=== PATIENT | female | born 1975 | race Caucasian/White ===

== ENCOUNTER → 2024-05-19 | Outpatient (CLI) | payer OTHER, SELFPAY ==
[2024-05-19 17:31] LABS: Pathologist Comment May follow
[2024-05-19 17:33] LABS: Pathologist Comment May follow
[2024-05-19 21:04] LABS: Synovial Fld Mononuclear WBC % 53.5 %; Synovial Fld Polynuclear WBC # 3.434 10^3/uL; Synovial Fld Polynuclear WBC % 46.5 %
[2024-05-19 21:06] LABS: RBC /Synovial Fluid 0.005 10^6/uL (0)
[2024-05-19 21:09] LABS: Synovial Fld Mononuclear WBC # 5.367 10^3/ul; Synovial Fld Mononuclear WBC % 39.9 %; Synovial Fld Polynuclear WBC # 8.103 10^3/uL; Synovial Fld Polynuclear WBC % 60.1 %
[2024-05-19 23:02] LABS: AUTO B FLUID DILUENT BKGD CT WBC <0.1 RBC <0.01 (W<.1,R<.01); Appearance /Synovial Fluid Hazy (CLEAR); CRYSTALS, BODY FLUID NO CRYSTALS SEEN; Color / Synovial Fluid Straw (Pale Yellow); Lymph 5 %; Neutrophil 63 % (0-25); Other Cell /Synovial Fluid 32 %; Source / Synovial Fluid L KNEE; Source- Body Fluid SYNOVIAL
[2024-05-19 23:03] LABS: RBC /Synovial Fluid 14 /mm3 (0)
[2024-05-19 23:04] LABS: AUTO B FLUID DILUENT BKGD CT WBC <0.1 RBC <0.01 (W<.1,R<.01); Body Fluid QC Type(s) BF1Q,BF2Q; CRYSTALS, BODY FLUID NO CRYSTALS SEEN; Color / Synovial Fluid Straw (Pale Yellow); Source / Synovial Fluid R KNEE; Source- Body Fluid SYNOVIAL
[2024-05-19 23:05] LABS: Appearance /Synovial Fluid Hazy (CLEAR); Body Fluid QC Type(s) BF1Q,BF2Q; Monocyte /Synovial Fluid 3 %; Neutrophil 77 % (0-25); Other Cell /Synovial Fluid 20 %
[2024-05-20 10:17] LABS: Pathologist Review Reviewed
== END | disposition home or self-care (01) ==
LOC: LABSPEC 17:00
PROVIDERS: PCP Family Medicine; Referring Provider Student in an Organized Health Care Education/Training Program; Visit Provider Student in an Organized Health Care Education/Training Program
DX: M25.462 Effusion, left knee (principal); M25.461 Effusion, right knee
CPT/HCPCS: 89050; 89051; 89060